=== PATIENT | male | born 1995 | race African-American/Black ===

== ENCOUNTER 2022-05-29 09:21 | Emergency (ER) | payer BC, SELFPAY ==
[2022-05-29 10:55] LABS: SARS-CoV-2 NAA Rapid Test Not Detected (NotDetected)
== END 2022-05-29 12:25 | disposition home or self-care (01) ==
LOC: CSHERS 09:21
DX: J11.1 Influenza due to unidentified influenza virus with other respiratory manifestations (principal); Z20.822 Contact with and (suspected) exposure to COVID-19
CPT/HCPCS: 71045

== ENCOUNTER 2024-03-28 09:48 | Emergency (ER) | payer OTHER ==
[2024-03-28] MEDS ORDERED: Ketorolac Tromethamine 30 MG (1 mL) VIAL ONE (11:03)
== END 2024-03-28 11:09 | disposition home or self-care (01) ==
LOC: CSHERS 09:48
DX: M54.2 Cervicalgia (principal); V89.2XXA Person injured in unspecified motor-vehicle accident, traffic, initial encounter
CPT/HCPCS: 70450; 72125; 96372; J1885